=== PATIENT | male | born 1990 ===

== ENCOUNTER 2025-04-24 10:15 | Outpatient (REF) | payer OTHER, SELFPAY ==
[2025-04-24 15:07] LABS: HCT 44.6 % (40.0-50.0); HGB 15.6 g/dL (13.5-17.5); MCH 31.6 pg (27.0-33.0); MCHC 35.0 % (32.0-36.0); MCV 91 fL (80-95); MPV 9.3 fL (8.0-11.0); Platelet Count 220 10^3/uL (130-400); RBC 4.93 10^6/uL (4.36-5.78); RDW 12.1 % (11.8-14.1); RDW-SD 39.9 fL; WBC 5.70 10^3/uL (4.4-10.8)
[2025-04-24 15:46] LABS: ALT 78 U/L (16-63); AST 40 U/L (15-37); Albumin 4.1 g/dL (3.4-5.0); Alkaline Phosphatase 79 U/L (46-116); Anion Gap 3.4 mmol/L (3-11); BUN 9 mg/dL (7-18); Bilirubin, Total 0.5 mg/dL (0.2-1.0); CO2 33.6 mmol/L (21.0-32.0); Calcium 9.3 mg/dL (8.5-10.1); Calculated LDL 132 mg/dL (<100); Chloride 104 mmol/L (98-107); Cholesterol 207 mg/dL (<200); Estimated GFR 114.93 (mL/min/1.73m2); Glucose 103 mg/dL (74-106); HDL Cholesterol 64 mg/dL (>or=40); Potassium 4.2 mmol/L (3.5-5.1); Sodium 141 mmol/L (136-145); Total Protein 7.6 g/dL (6.4-8.2); Triglyceride 58 mg/dL (<150)
== END 2025-04-24 10:16 | disposition home or self-care (01) ==
LOC: NCHCN 10:15
PROVIDERS: PCP Nurse Practitioner Family; Visit Provider Nurse Practitioner Family
DX: Z00.00 Encounter for general adult medical examination without abnormal findings (principal)
CPT/HCPCS: 80053; 80061; 85027